=== PATIENT | female | born 1965 | race Caucasian/White ===

== ENCOUNTER 2019-06-13 15:03 | Outpatient (RCR) | payer OTHER, SELFPAY | END 2019-06-13 23:59 | disposition home or self-care (01) | LOC: ANHAUDIO 15:03 | PROVIDERS: PCP Emergency Medicine; Visit Provider Emergency Medicine | DX: Z46.1 Encounter for fitting and adjustment of hearing aid (principal) | CPT/HCPCS: V5160; V5261 ==

== ENCOUNTER 2019-07-22 15:30 | Outpatient (RCR) | payer OTHER, SELFPAY ==
--- NOTE | 2019-07-04 17:41 | PTOPEVAL ---
PHYSICAL THERAPY EVALUATION AND PLAN OF CARE Thank you for referring this patient to [facility]. Piedad will benefit to participate in PT 2x/week for 4 weeks. Please review, sign, date and return this plan of care OSWALDO. I agree with and certify that the following plan of care is medically necessary. Referring Physician Date Attending Provider: Lynne Tai, SALES AND MARKETING INTERN Evaluation Information Diagnosis moderate dextroscoliosis, spondylosis, spinal stenosis Onset 2016 Subjective Information In 2017 patient started to Query Text:As Reported By Patient/ care for her ailing parents Family and within that time frame she started to become sick and has since been diagnosed with neuropathy, heart failure, kidney disease, and an autoimmune disease. She is also diagnosed with spinal stenosis after investigation of back pain. Cannot sit for very long or stand very long without increased back pain. Self Report Pain Assessment Right Spine, Lumbar Reported Pain Level 6 Pain Description Soreness Pain Frequency Chronic,Continuous Current Pain Intensity 6 Lowest Pain Intensity 4 Greatest Pain Intensity 10 Pain Relief Interventions Used By Medication,Position Change Patient Interventions Used By Clinicians Exercise Additional Pain Comments tyelnol every 4 hours; gabapenton Lumbar ROM Lumbar Flexion (0-90) 45 Query Text:Active in Degrees Lumbar Extension (0-40) 0 Query Text:Active in Degrees Lateral Rotation Right (0-45) 15 Query Text:Active in Degrees Lateral Rotation Left (0-45) 20 Query Text:Active in Degrees Lumbar Comments good segmental mobility into flexion within current limits; severely hypomobility segmentally into extension Hip Range of Motion Bilateral Hip Flexion Range of Motion - Passive 100 Hip Medial Rotation - Passive -5 Hip Lateral Rotation - Passive 45 Hip Strength Left Hip Flexion Strength 4 Good Hip Extension Strength 4- Good - Hip Abduction Strength 3+ Fair + Right Hip Flexion Strength 4- Good - Hip Extension Strength 4- Good - Hip Abduction Strength 3- Fair - Knee Strength Bilateral Knee Flexion Strength 4- Good - Knee Extension Strength
--- NOTE | 2019-07-30 13:54 | PCPTNOTE ---
Patient called & cancelled scheduled appointment this date due to COVID-19 social distancing.
--- NOTE | 2019-08-01 10:23 | PCPTNOTE ---
Patient called & cancelled scheduled appointment this date due to COVID-19, stated she has an autoimmune condition and doesn't feel safe.
--- NOTE | 2019-08-13 09:22 | PCPTNOTE ---
Patient called & cancelled scheduled appointment for today and for 08/15/2019 due to COVID-19 precautions.
--- NOTE | 2019-09-23 09:14 | PCPTNOTE ---
PHYSICAL THERAPY DISCHARGE REPORT Attending Provider: Lynne Tai, DIAGNOSTIC TECHNICIAN Patient:Piedad Aquino Date of :1965 Piedad cancelled her last 2 weeks of appointments secondary to COVID-19 precautions and stay at home orders. Patient has not returned for any further treatments since 07/22/2019, therefore she will be discharged at this time. We will be happy to work with Piedad when she is ready to return to therapy. Patient?s initial visit was on 07/04/2019. The goals have not been met. Thank you for referring this patient to [facility]. Please review, sign, date and return this discharge summary OSWALDO. I have been updated about the patient's current status and I agree with discharge from the above service at this time. Referring Physician Date
== END 2019-09-23 09:52 | disposition home or self-care (01) ==
LOC: ANHPT 15:30
PROVIDERS: PCP Emergency Medicine; Visit Provider Nurse Practitioner Adult Health
DX: M47.26 Other spondylosis with radiculopathy, lumbar region (principal)
CPT/HCPCS: 97110; 97162

== ENCOUNTER 2020-02-24 12:51 | Outpatient (CLI) | payer OTHER, SELFPAY ==
--- NOTE | ~2020-02-24 | MR_ITS ---
EXAMINATION: MR shoulder LT wo con DATE: 02/24/2020 13:42 INDICATION: Left rotator cuff tendinitis. TECHNIQUE: Magnetic resonance imaging (MRI) of the left shoulder was performed without intravenous co ntrast. Sequences included axial PD-weighted FS FSE, coronal oblique PD-weighted FS FSE, coronal obli que T2-weighted FS FSE, sagittal PD-weighted FS FSE, and sagittal T1-weighted SE. COMPARISON: None. FINDINGS: Coracoacromial arch: The acromion undersurface is flat in morphology (type I). The coracoacromial ligament is normal. Mild to moderate acromioclavicular osteoarthritis. Rotator cuff: Mild tendinopathy at the supraspinatus and conjoined portion of the supraspinatus and infraspinatus t endons without discrete tear. The more posterior infraspinatus and teres minor tendons are normal. Th e subscapularis tendon is normal. Normal rotator cuff muscle bulk and signal. Biceps tendon, glenoid labrum and glenohumeral cartilage: Long head of the biceps tendon is normal. Glenoid labrum is normal. Small region of deep chondral fis suring at the anterosuperior glenoid. Fluid: Physiologic amount of fluid in the glenohumeral joint and biceps tendon sheath. No loose osteochondra l bodies. No abnormally increased fluid signal in the subacromial/subdeltoid bursa to suggest bursiti s. Bones/other: Bone alignment is normal. No fracture or pathologic marrow replacing process. There is thickening of the structures at the rotator cuff interval including the biceps peewee sling with decrease in the no rmal T1 fat signal. This can be seen in the setting of adhesive capsulitis which is a clinical diagno sis. No abnormal thickening of the joint capsule at the axillary recess which can be a second finding of adhesive capsulitis. IMPRESSION: 1. Mild tendinopathy without discrete tear at the supraspinatus and conjoined supraspinatus and infra spinatus tendons. 2. Mild supraspinatus tendinopathy with small region of deep fissuring at the anterosuperior glenoid. 4. Mild to moderate acromioclavicular osteoarthritis. 5. Increased soft tissue at the rotator cuff interval including the biceps peewee sling which can be seen in the setting of adhesive capsulitis which is a clinical diagnosis. Reviewed, dictated and finalized at location B. IMPRESSION: 1. Mild tendinopathy without discrete tear at the supraspinatus and conjoined s upraspinatus and infraspinatus tendons. 2. Mild supraspinatus tendinopathy with small region of deep fissuring at the a nterosuperior glenoid. 4. Mild to moderate acromioclavicular osteoarthritis. 5. Increased soft tissue at the rotator cuff interval including the biceps pull ey sling which can be seen in the setting of adhesive capsulitis which is a cli nical diagnosis.
== END 2020-02-24 12:52 | disposition home or self-care (01) ==
PROVIDERS: PCP Emergency Medicine
DX: M75.82 Other shoulder lesions, left shoulder (principal); M19.012 Primary osteoarthritis, left shoulder; M67.814 Other specified disorders of tendon, left shoulder
CPT/HCPCS: 73221

== ENCOUNTER 2020-03-04 09:07 | Outpatient (CLI) | payer OTHER, SELFPAY ==
--- NOTE | ~2020-03-04 | US_ITS ---
EXAMINATION: US retroperitoneal duplex ltd DATE: 03/04/2020 11:04 CDT INDICATION: Chronic kidney disease TECHNIQUE: Sonographic imaging of the kidneys was performed with a 3.5 MHz transducer. Retroperitone al duplex sonogram of the renal arteries also obtained. FINDINGS: No focal flow abnormalities are seen in the renal arteries on color Doppler. The peak syst olic velocity ranges of the right and left renal arteries and aorta are 71 cm per second, 43 cm per s econd, and 58 cm per second, respectively. The velocities and renal to aortic ratios are within geovanni l limits. IMPRESSION: 1. No Doppler evidence of renal artery stenosis. Reviewed, dictated and finalized at location B.
== END 2020-03-04 09:08 | disposition home or self-care (01) ==
PROVIDERS: PCP Emergency Medicine; Visit Provider Internal Medicine Endocrinology, Diabetes & Metabolism
DX: N18.9 Chronic kidney disease, unspecified (principal)
CPT/HCPCS: 93976

== ENCOUNTER 2020-03-17 01:17 | Outpatient (CLI) | payer OTHER, SELFPAY ==
[2020-03-17 20:51] LABS: SARS-CoV-2 RNA PCR Negative
== END 2020-03-17 01:18 | disposition home or self-care (01) ==
LOC: ANHCOVIDDT 01:17
PROVIDERS: PCP Emergency Medicine; Visit Provider Internal Medicine Critical Care Medicine
DX: Z01.812 Encounter for preprocedural laboratory examination (principal); Z20.828 Contact with and (suspected) exposure to other viral communicable diseases
CPT/HCPCS: 87635; C9803; U0003

== ENCOUNTER 2020-03-19 08:05 | Outpatient (CLI) | payer OTHER, SELFPAY ==
--- NOTE | 2020-04-23 09:56 | WPDSLEEPSTUD ---
Sleep Study Date of Study: 03/19/20 Ordering Provider: , Interpreting Physician: Sleep Study Type: Split Polysomnogram Height: 1.59 m Weight: 80.286 kg Body Mass Index: 31.9 Neck Circumference: 13.5 m [place]: 15 Reason for Sleep Study Patient has established diagnosis of LESLIE. She was using CPAP in the past, but has not done so for the last few years. She has symptoms consistent with untreated sleep apnea including hypersomnolence. Sleep History Snoring, non-refreshing sleep, witnessed apneas, daytime sleepiness. [facility] Past Medical History Medical History (Updated 03/08/20 @ 12:14 by Cathie Veliz MD) Bilateral swelling of feet and ankles Congestive heart failure Daytime sleepiness Depression Fatigue History of tobacco abuse Intermittent palpitations Kidney disease Loud snoring Low back pain Neuropathy Restless sleeper Shortness of breath Sleep apnea, unspecified Wheezing Surgical History Surgical History H/O knee surgery History of carpal tunnel surgery S/P gastric surgery Trigger finger of left thumb Family History Family History Father Heart disease Hypertension Pacemaker Cerebrovascular accident Mother Diabetes mellitus Hypertension Heart disease Cancer Sibling COPD (chronic obstructive pulmonary disease) Lung cancer Hypertension Neuropathy Social History Social History Smoking packs per day: 1 Smoking cigarettes per day: 20.0 Smoking status: Former smoker Smoking end date: 10/23/18 Alcohol intake: never Medications Home Medications Medication Instructions Recorded Confirmed Type acetaminophen 325 mg capsule 325 mg PO Q6H PRN 03/02/20 03/08/20 History bumetanide 2 mg tablet 2 mg PO DAILY 03/02/20 03/08/20 History gabapentin 300 mg capsule 300 mg PO DAILY 03/02/20 03/08/20 History omeprazole 40 mg capsule,delayed 40 mg PO DAILY 03/02/20 03/08/20 History release tramadol 50 mg tablet 50 mg PO Q6H PRN 03/02/20 03/08/20 History vitamin [id number] B1 1,000 ml IM 03/02/20 03/08/20 History mcg-100 mg/mL injection solution levothyroxine 100 mcg tablet 100 mcg PO DAILY 03/05/20 03/08/20 History Sleep Procedure In lab polysomnography using split night protocol. Sleep Architecture Diagnostic study - recording time 148 minutes, sleep time 136 minutes, sleep efficiency 92.1% Sleep latency 8 minutes, REM latency 81 minutes Sleep stages awake after sleep onset 3.5 minutes, stage N1 4.4%, and N2- 50.8%, N3-26%, REM sleep 18.7%. Body position - supine. Treatment study-- total recording time 308 minutes, sleep time 276 minutes, sleep efficiency 89.5% Sleep latency 1.7 minutes, REM latency 60 minutes. Sleep stages - stage N1 7.8%, stage N2 70.7%, stage N3 0%, REM sleep 21.6%. Body position during CPAP -supine. Respiratory Analysis Diagnostic study - obstructive apneas 8, central apneas 2, apnea index 4.4 hypopneas 26 - index 11.4 AHI-15.8. REM index 51.8, non-REM index 7.6 treatment study- obstructive apneas 25. central apnea 1, hypopneas 12 AHI- 8.3. REM index 32.3, non-REM index 2.2. Arousals Diagnostic study - 21 arousals, index 8.5 Treatment study - 76 arousals, index 14.8 Periodic Limb Movements diagnostic study - leg movements 13, periodic leg movements 1, index 0.4 Treatment study - leg movements 33, periodic leg movements 0. Oximetry Data Diagnostic study - mean saturation 93%, minimum saturation 73% occurred in REM sleep. 6 minutes of sleep occurred with saturation of 89 or below -4.1%, 4.9 minutes sleep with saturation of 87 or below, 2.7%. Treatment study - mean saturation 94.8%, minimum saturation 77%, 3.1 minutes of sleep occurred with saturation of 89 or below, 1%, 2.1 minutes of sleep with saturation of 87 o
[2020-04-23 10:47] VITALS: BMI 31.9
== END 2020-03-19 08:06 | disposition home or self-care (01) ==
LOC: ANHCSM 08:10
PROVIDERS: PCP Emergency Medicine; Visit Provider Internal Medicine Critical Care Medicine
DX: G47.10 Hypersomnia, unspecified (principal); G47.33 Obstructive sleep apnea (adult) (pediatric)
CPT/HCPCS: 95811

== ENCOUNTER 2020-04-14 15:45 | Outpatient (RCR) | payer OTHER, SELFPAY ==
--- NOTE | 2020-03-30 13:34 | PTOPEVAL ---
PHYSICAL THERAPY EVALUATION AND PLAN OF CARE 03-30-2020 Thank you for referring Piedad Aquino to [facility], s/p L shoulder manipulation. She is scheduled to be seen for therapy? 2x/week for 3 weeks. Please review, sign, date and return this plan of care OSWALDO. I agree with and certify that the following plan of care is medically necessary. Referring Physician Date Attending Provider: Dr. Vaughan *PT Outpatient Evaluation Start: 03/30/20 12:37 Freq: Status: Active Protocol: Document 03/30/20 12:35 LUCIANA (Rec: 03/30/20 13:26 LUCIANA [id number]) Therapy Assessment Status Assessment Status Assessment Status Evaluation Outpatient Past Medical History Past Medical History Source of Past Medical History Patient Neurological History Hx Other Neurological Disorders Yes: neuropathy of hands and feet Cardiovascular History Hx Other Cardiac Disorders Yes: CHF-no longer taking any meds for CHF Respiratory History Hx Respiratory Disorders No Significant History Gastrointestinal History Hx Gastric Bypass Surgery Yes: 2000 Hx Gastroesophageal Reflux Disease Yes Genitourinary History Hx Renal Disease Yes: kidney disease- stage 3 Musculoskeletal History Hx Arthritis Yes: L shoulder, B feet, ankles, toes, hands Hx Back Pain Yes: chronic back pain Hx Fractures Yes: R hip fracture- hairline fracture no surgery Hx Orthopedic Surgery Yes: trigger finger surgery, recent injection Hx Other Musculoskeletal Disorders Yes: right knee arthroscopic; unsteady with walking 1fall/6 months Hematological History Hx Hematological Disorders No Significant History Endocrine History Hx Hypothyroidism Yes HEENT History Hx Other HEENT Disorders Yes: [place]- have hearing aides Other History Hx Other Surgeries Yes: abdominoplasty after bypass Evaluation Information Problem Diagnosis L shoulder manipulation Onset Jan 2020 Subjective Information had manipulation L shoulder 11 Query Text:As Reported By Patient/ -; have been stretching Family shoulder up the wall over the weekend; gradual freezing up of shoulder ; Previous Treatments Previous Treatments For This Problem did not have PT on shoulder prior to manipulation Prior Level of Function Activity Level (Last 3 Months) Occupation not working outside of home;
--- NOTE | 2020-04-24 14:55 | PCPTNOTE ---
pt did not show for today's reevaluation; called her and left a voice message;
--- NOTE | 2020-05-27 11:43 | PCPTNOTE ---
PHYSICAL THERAPY DISCHARGE 05-27-20 Attending Provider:Dr. Armin Vaughan Patient:Piedad Aquino Date of :1965 Ms. Aquino has received 5 PT sessions, from March 30 to April 14, for the diagnosis of L shoulder ankylosis, s/p manipulation of shoulder. She then stopped attending PT. Therefore, she will be discharged from PT at this time. Goals were not assessed. Thank you for referring Piedad to [facility]. Please review, sign, date and return this discharge summary OSWALDO. I have been updated about the patient's current status and I agree with discharge from the above service at this time. Referring Physician Date
== END 2020-05-28 11:19 | disposition home or self-care (01) ==
LOC: ANHPT 15:45
PROVIDERS: PCP Emergency Medicine
DX: M24.812 Other specific joint derangements of left shoulder, not elsewhere classified (principal)
CPT/HCPCS: 97110; 97140; 97161

== ENCOUNTER 2020-05-09 13:37 | Outpatient (CLI) | payer OTHER, SELFPAY ==
--- NOTE | ~2020-05-09 | XR_ITS ---
XR foot LT min 3V 05/09/2020 14:03 Indication: Calcaneal spur. Procedure: 4 views left foot Comparison: 04/05/2019 Findings: No acute fracture or traumatic malalignment. Lisfranc joint intact. Mild osteoarthritis of the first MTP joint. There is a small degenerative calcaneal enthesophyte at the plantar surface. No focal soft tissue abnormality. No radiopaque foreign bodies. Impression: 1: Mild osteoarthritis of the first MTP joint. Reviewed, dictated and finalized at location A. E CUTTER Impression: 1: Mild osteoarthritis of the first MTP joint.
== END 2020-05-09 13:38 | disposition home or self-care (01) ==
PROVIDERS: PCP Emergency Medicine
DX: M77.32 Calcaneal spur, left foot (principal); M79.672 Pain in left foot; R26.89 Other abnormalities of gait and mobility; M19.072 Primary osteoarthritis, left ankle and foot
CPT/HCPCS: 73630

== ENCOUNTER 2020-08-01 13:03 | Outpatient (CLI) | payer OTHER, SELFPAY ==
--- NOTE | 2020-08-01 | ECG_ITS ---
Measurements Intervals [place] Rate: 81 P: 54 [place]: 186 QRS: 71 QRSD: 82 T: 50 QT: 355 QTc: 414 Interpretive Statements SINUS RHYTHM BASELINE ARTIFACT- I, II, III, AVR, AVL, AVF NORMAL ECG Electronically Signed On 08-01-2020 16:13:50 CDT by Calvin Nazario D.O.
--- NOTE | ~2020-08-01 | XR_ITS ---
XR chest 2V DATE: 08/01/2020 13:39 INDICATION: Shortness of breath. Hypertension. Former smoker. TECHNIQUE: PA and lateral views COMPARISON: 12/11/2018 2 view chest FINDINGS: Normal heart size. No hilar or mediastinal enlargement. No pulmonary infiltrate or consolidation, pleural effusion or pulmonary vascular congestion or pneumo thorax. Postoperative changes of left and right upper quadrants. Osteopenia. IMPRESSION: No active cardiopulmonary disease Reviewed, dictated and finalized at location A.
== END 2020-08-01 13:04 | disposition home or self-care (01) ==
PROVIDERS: PCP Emergency Medicine; Visit Provider Internal Medicine Nephrology
DX: R60.9 Edema, unspecified (principal); G47.33 Obstructive sleep apnea (adult) (pediatric); I51.9 Heart disease, unspecified; I10 Essential (primary) hypertension
CPT/HCPCS: 71046; 93005

== ENCOUNTER 2020-08-21 13:02 | Outpatient (CLI) | payer OTHER, MEDICAID, SELFPAY ==
--- NOTE | 2020-08-21 | ECHO_ITS ---
Patient Info Name: Piedad Aquino Age: 54 years : 1965 Gender: Female Ht: 63 in Wt: 190 lbs BSA: 1.99 m2 HR: 71 bpm BP: 130 / 86 mmHg Technical Quality: Good Exam Date: 08/21/2020 1:14 PM Exam Location: [facility] Patient Status: Outpatient Admit Date: 08/21/2020 Staff Ordering Physician: Stephan, Salo Muñiz DO Global Chief Creative Officer: Palak Akhtar RDCS Attending Provider: Deb, Salo Muñiz DO Referring Physician: Stephan BARNES; Exam Type: CA echo doppler color flow Study Info Indications I10 - Essential (primary) hypertension Complete two-dimensional, color flow and Doppler transthoracic echocardiogram is performed. Summary 1. Complete two-dimensional, color flow and Doppler transthoracic echocardiogram is performed. 2. Left ventricular chamber dimension is normal. 3. Left ventricular systolic function is normal, estimated at 60-65%. 4. The left ventricular diastolic function is normal. 5. E/e' 8 is minimally elevated. 6. Global longitudinal strain is normal at -19.7%. 7. There is mild mitral valve regurgitation. 8. There is trace tricuspid valve regurgitation. 9. No pulmonary hypertension, estimated pulmonary arterial systolic pressure is 30 mmHg. Left Ventricle E/e' 8 is minimally elevated. Global longitudinal strain is normal at -19.7%. Left ventricular chamber dimension is normal. Left ventricular systolic function is normal, estimated at 60-65%. The left ventricular diastolic function is normal. Right Ventricle Right ventricular chamber dimension is normal. Right ventricular systolic function is normal. Left Atria Left atrial chamber dimension is normal. Right Atria Right atrial chamber dimension is normal. Aortic Valve The aortic valve is trileaflet. There is no aortic valve stenosis. There is no aortic valve regurgitation. Pulmonic Valve There is no pulmonic regurgitation. Mitral Valve There is no mitral valve stenosis. There is mild mitral valve regurgitation. Tricuspid Valve There is trace tricuspid valve regurgitation. No pulmonary hypertension, estimated pulmonary arterial systolic pressure is 30 mmHg. Pericardium/Pleural There is no pericardial effusion. Inferior Vena Cava Normal inferior vena cava with >50% collapse upon inspiration consistent with normal right atrial pressure, 5 mmHg. Aorta The aortic root size at the sinus of Valsalva is normal. Left Ventricular Outflow Tract Name Value Normal LVOT 2D LVOT Diameter 2.0 cm LVOT Doppler LVOT Peak Gradient 4 mmHg LVOT Mean Gradient 2 mmHg LVOT VTI 20 cm LVOT VTI/AV VTI Ratio 0.9 LVOT Stroke Volume 61 ml LVOT CO 4.7 l/min LVOT CI 2.4 l/min/m2 Pulmonic Valve Name Value Normal RVOT Doppler
== END 2020-08-21 13:03 | disposition home or self-care (01) ==
PROVIDERS: PCP Family Medicine; Visit Provider Internal Medicine Nephrology
DX: I10 Essential (primary) hypertension (principal); I51.9 Heart disease, unspecified; G47.33 Obstructive sleep apnea (adult) (pediatric); R60.9 Edema, unspecified
CPT/HCPCS: 93306

== ENCOUNTER → 2020-12-24 15:35 | Outpatient (CLI) | payer OTHER, MEDICAID, SELFPAY ==
--- NOTE | ~2020-12-24 | DEXA_ITS ---
Bone Density Report Name: Piedad Aquino Age: 55 Sex: Female Ethnicity: White Date of : 1965 Indication: postmenopausal; screening for osteoporosis; height loss; prior fracture; Referring Provider: LEXIE, DIRK Study: Bone densitometry was performed. Exam Date: December 24, 2020 Accession number: [id number] Bone Density: Region BMD T-score Z-score Classification AP Spine (L1-L4) 1.118 0.6 1.9 Normal Femoral Neck (Left) 0.781 -0.6 0.5 Normal Total Hip (Left) 0.806 -1.1 -0.3 Osteopenia Femoral Neck (Right) 0.804 -0.4 0.7 Normal Total Hip (Right) 0.784 -1.3 -0.5 Osteopenia Total Hip Mean 0.795 -1.2 -0.4 Osteopenia World Health Organization criteria for BMD impression classify patients as: Normal (T-score at or above -1.0), Osteopenia (T-score between -1.0 and -2.5), or Osteoporosis (T-score at or below -2.5). 10-year Fracture Risk: FRAX not reported because: Prior hip or vertebral fracture Clinical Information Provided by Patient: Have had a previous hip or vertebral fracture Has had a low trauma fracture Has used the following medications: Vitamin D, DEPO Patient maximum height was 65.5 Menopause Age: 49 No regular weight bearing exercise Drinks caffeinated beverages Onset of menses at age 9 Number of children 0 Missed period for more than 6 months in a row Impression: The patient has low bone mass, based on the Right Total Hip T-score. The patient has risk factors, including: previous fracture. Discussion: INCREASED RISK OF FRACTURE DUE TO HISTORY OF FRACTURE. The patient's previous fracture puts the patient at high risk of a future fracture. In untreated patients, the risk of osteoporotic fracture increases approximately two-fold for each 1.0 SD decrease in T-score. Low bone density is not the only risk factor for fracture; also consider factors such as patient's age, frailty or poor health, risk of falling, risk of injury, previous osteoporotic fracture, family history of osteoporosis, cigarette smoking, low body weight, etc. Not everyone with a low trauma fracture has osteoporosis; osteomalacia and other metabolic bone disorders should also be considered. Patients who have osteoporosis should be evaluated for specific diseases and conditions (secondary causes) that may cause or contribute to bone loss and fracture risk. National Osteoporosis Foundation (NOF) recommends pharmacologic intervention for patients with a prior hip or vertebral fracture regardless of BMD T-score. The patient should follow a healthful lifestyle (good nutrition with adequate calcium and vitamin D, and appropriate weight-bearing exercise). Follow-Up: Consider a repeat BMD and Vertebral Fracture Assessment (VFA) exam in 2 years or sooner if medically necessary, to reassess this patient's status. Reported by: JULIETH
== END ==
PROVIDERS: PCP Family Medicine; Visit Provider Family Medicine
DX: Z78.0 Asymptomatic menopausal state (principal); M85.851 Other specified disorders of bone density and structure, right thigh; M85.852 Other specified disorders of bone density and structure, left thigh
CPT/HCPCS: 77080

== ENCOUNTER → 2021-02-02 10:11 | Outpatient (CLI) | payer OTHER, MEDICAID, SELFPAY ==
--- NOTE | ~2021-02-02 | MR_ITS ---
EXAMINATION: MR lumbar spine wo con DATE: 02/02/2021 10:53 INDICATION: Chronic bilateral low back pain without sciatica. TECHNIQUE: Magnetic resonance imaging (MRI) of the lumbar spine was performed without intravenous con trast. Sequences included sagittal T2-weighted FSE, sagittal T2-weighted FS FSE, sagittal T1-weighted FSE, and axial T2-weighted FSE. COMPARISON: Lumbar spine MRI 05/17/2019 FINDINGS: There is 24 degrees dextroscoliosis of lumbar spine. There is a chronic compression fractur e of T11 with 1/5 loss of height. There is a Schmorl's noted of T12 superior endplate. There is mildl y decreased disc height at T12-L1, moderately decreased disc height at L1-L2, severely decreased disc height from L2-L3 through L4-L5, and mildly decreased disc height at L5-S1 with endplate remodeling. The distal spinal cord signal intensity is normal. The conus medullaris is at T12. The following dis c levels are specifically discussed: L1-L2: The disc is bulging with superimposed central extrusion. There is moderate bilateral facet audrey nt osteoarthritis. There is mild bilateral neural foraminal stenosis. There is mild central canal liliane nosis. L2-L3: The disc is bulging and has an annular fissure. There is moderate right and severe left facet joint osteoarthritis. There is mild right and moderate left neural foraminal stenosis. There is mild central canal stenosis. There is moderate stenosis of left lateral recess. L3-L4: The disc is bulging and has an annular fissure. There is moderate bilateral facet joint osteoa rthritis. There is mild bilateral neural foraminal stenosis. There is mild central canal stenosis. L4-L5: The disc is bulging and has an annular fissure. There is severe right and moderate left facet joint osteoarthritis. There is moderate right and mild left neural foraminal stenosis. There is mild central canal stenosis. L5-S1: The disc is bulging. There is severe bilateral facet joint osteoarthritis. There is moderate r ight and mild left neural foraminal stenosis. There is mild central canal stenosis. IMPRESSION: 1. Severe lumbar spondylosis, worsened from 05/17/2019. 2. Lumbar dextroscoliosis. Reviewed, dictated and finalized at location A.
== END ==
PROVIDERS: PCP Family Medicine; Visit Provider Family Medicine
DX: M47.817 Spondylosis without myelopathy or radiculopathy, lumbosacral region (principal); M48.07 Spinal stenosis, lumbosacral region; M41.9 Scoliosis, unspecified
CPT/HCPCS: 72148

== ENCOUNTER 2022-12-10 12:29 | Outpatient (CLI) | payer OTHER, MEDICAID, SELFPAY ==
--- NOTE | ~2022-12-10 | MR_ITS ---
MRI of the lumbar spine Clinical History: Spinal stenosis Technique: Axial T2-weighted images, and sagittal T1-weighted, T2-weighted, and T2 fat-sat images wer e acquired. COMPARISON: 02/02/2021 Findings: There is 27 degree dextroscoliosis of the lumbar spine. No acute fracture or subluxation ev ident otherwise. There is reactive marrow edema about the L2-L3 disc space due to severe degenerative disc narrowing at this level. At L1-L2, there is advanced degenerative disc narrowing, with minimal disc bulge and moderate facet a rthropathy. No central canal stenosis or definite neural foraminal narrowing. At L2-L3, there is advanced degenerative disc narrowing. There is mild diffuse disc bulge with modera te to severe facet arthropathy. There is severe left neural foraminal narrowing. Right neural foramen preserved. No nisreen central canal stenosis. L3-L4, there is advanced degenerative disc narrowing. There is mild disc bulge with advanced facet ar thropathy. There is moderate right neural foraminal narrowing and minimal left neural foraminal narro wing. No central canal stenosis. At L4-L5, there is diffuse disc bulge and moderate to advanced facet arthropathy, right worse than le ft. There is severe right neural foraminal narrowing. Left neural foramen preserved. No central canal stenosis. At L5-S1, there is severe facet arthropathy, right worse than left, with mild diffuse disc bulge. No central canal stenosis. There is moderate right neural foraminal narrowing. Left neural foramen prese rved. Paravertebral soft tissues are unremarkable. Impression: Moderate degenerative spondylosis, as above, with multilevel neural foraminal narrowing and extensive severe facet arthropathy. No nisreen central canal stenosis. 27 degrees dextroscoliosis. Reviewed, dictated and finalized at [facility]. Impression: Moderate degenerative spondylosis, as above, with multilevel neural foraminal n arrowing and extensive severe facet arthropathy. No nisreen central canal stenosi s. 27 degrees dextroscoliosis.
== END 2022-12-10 12:30 | disposition home or self-care (01) ==
LOC: ANHIMG 12:43
PROVIDERS: PCP Family Medicine
DX: M48.061 Spinal stenosis, lumbar region without neurogenic claudication (principal); M43.06 Spondylolysis, lumbar region; M12.88 Other specific arthropathies, not elsewhere classified, other specified site; M41.86 Other forms of scoliosis, lumbar region
CPT/HCPCS: 72148

== ENCOUNTER 2023-01-09 12:38 | Outpatient (CLI) | payer OTHER, SELFPAY ==
--- NOTE | ~2023-01-09 | MR_ITS ---
MRI of the thoracic spine Clinical History: Stenosis Technique: Axial T2-weighted and gradient images, and sagittal T1-weighted, T2-weighted, and STIR diana ges were acquired. Findings: There is no acute fracture or subluxation of the thoracic spine. There are prominent Schmor l's nodes at the superior endplate regions of T11 and T12. No suspicious bone marrow signal abnormali ty seen. There are scattered minimal disc bulges. No significant disc protrusion or herniation seen. No spinal canal stenosis or cord compression evident. No abnormal signal seen in the spinal cord itself. No epidural mass or collection seen. Paravertebral soft tissues are unremarkable. Impression: Minimal degenerative changes, as above. Reviewed, dictated and finalized at [facility]. Impression: Minimal degenerative changes, as above.
== END 2023-01-09 12:39 | disposition home or self-care (01) ==
PROVIDERS: PCP Family Medicine; Visit Provider Physician Assistant
DX: M48.061 Spinal stenosis, lumbar region without neurogenic claudication (principal); M54.16 Radiculopathy, lumbar region
CPT/HCPCS: 72146

== ENCOUNTER 2023-01-20 12:38 | Outpatient (CLI) | payer OTHER, MEDICAID, SELFPAY ==
--- NOTE | ~2023-01-20 | MR_ITS ---
MRI of the right knee Clinical history: Pain Technique: Coronal proton density and proton density-weighted images, sagittal proton-density and T2 fat-sat images, and axial proton-density fat-saturated images were acquired. Findings: Anterior and posterior cruciate ligaments are intact. Medial collateral ligament and the la teral collateral ligament complex are intact. Popliteus tendon is intact. Medial and lateral menisci are intact, without definite tear. Articular cartilage in the medial and lateral compartments is well preserved. There is patchy high-gr bryanna chondromalacia patella. There is moderate chondromalacia over the medial femoral trochlea. Extensor mechanism is intact. No significant joint effusion or Fernandez's cyst. Impression: Advanced chondromalacia of the patellofemoral compartment, as detailed above. No ligamentous injury or meniscal tear seen. Reviewed, dictated and finalized at [facility]. Impression: Advanced chondromalacia of the patellofemoral compartment, as detailed above. No ligamentous injury or meniscal tear seen.
== END 2023-01-20 12:39 | disposition home or self-care (01) ==
PROVIDERS: PCP Family Medicine
DX: M25.561 Pain in right knee (principal); M94.261 Chondromalacia, right knee
CPT/HCPCS: 73721

== ENCOUNTER 2023-03-31 13:42 | Outpatient (CLI) | payer OTHER, MEDICAID, SELFPAY ==
--- NOTE | ~2023-03-31 | CT_ITS ---
EXAMINATION: CT abdomen pelvis w con DATE: 03/31/2023 14:18 INDICATION: Abdominal bloating TECHNIQUE: Computed tomography (CT) of the abdomen and pelvis was performed with 100 CC Omnipaque 350 intravenous contrast. Automated exposure control and iterative reconstruction technique were employe d. Exam dose: 1264.05 mGy-cm total exam DLP. COMPARISON: None. FINDINGS: Mild atelectasis at the left lung base. Minimal discoid atelectasis in the right lower lobe . Bilateral breast implants present. Normal heart size. No pericardial or pleural effusion. Status post cholecystectomy. No hepatic, splenic, pancreatic, and adrenal or renal space-occupying ma ss lesion is detected. No urinary tract calculus or hydroureteronephrosis. The urinary bladder is evacuated, essentially unr emarkable. Uterus and adnexal areas likewise are unremarkable. Normal caliber of the abdominal aorta. No intraperitoneal or retroperitoneal or pelvic mass lesion or adenopathy or ascites is detected. Post gastric sleeve surgery. The functional part of the stomach appears unremarkable but there is clayton y prominent abnormal distention of the excluded portion of the stomach with food debris, fluid and ai r. At the distal antrum and pyloric area there is wall thickening and enhancement suggesting inflamma tion, ulceration, infection or neoplasm with outlet obstruction. At the small bowel anastomosis in the left lower quadrant there is approximately 6 cm fluid collectio n with air-fluid level suggesting partial obstruction. The distal small bowel is of normal caliber. Normal appendix. No colonic obstruction. No intraperitoneal free air. There is multilevel severe degenerative disc disease of the lumbar spine. Degenerative spurring of th e lower thoracic spine. Bilateral hip osteoarthritis. No suspicious osteolytic or osteoblastic lesions are noted. IMPRESSION: Apparent abnormal accumulation location between the functional and excluded portions of the stomach with very prominent fluid debris, fluid and air accumulation in the very distended exclud ed portion of the stomach There is thickening of the wall the distal gastric antrum, with enhancement, which may be due to infl ammation from inflammation, ulcer, infection or neoplasm. 6 cm fluid collection at the small bowel anastomosis which may be due to partial obstruction at the s mall bowel anastomotic site Surgical consultation is recommended Reviewed, dictated and finalized at [facility]. Reviewed, dictated and finalized at [facility]. R [employer] IMPRESSION: Apparent abnormal accumulation location between the functional and excluded portions of the stomach with very prominent fluid debris, fluid and a ir accumulation in the very distended excluded portion of the stomach There is thickening of the wall the distal gastric antrum, with enhancement, wh ich may be due to inflammation from inflammation, ulcer, infection or neoplasm. 6 cm fluid collection at the small bowel anastomosis which may be due to partia l obstruction at the small bowel anastomotic site Surgical consultation is recommended
== END 2023-03-31 13:43 | disposition home or self-care (01) ==
PROVIDERS: PCP Family Medicine
DX: R14.0 Abdominal distension (gaseous) (principal); R19.7 Diarrhea, unspecified; R19.5 Other fecal abnormalities; R93.5 Abnormal findings on diagnostic imaging of other abdominal regions, including retroperitoneum
CPT/HCPCS: 74177; Q9967